=== PATIENT | female | born 1970 | race American Indian/Alaskan Native ===

== ENCOUNTER 2016-11-05 08:03 | Day surgery (SDC) | payer MEDICARE ==
--- NOTE | 2016-11-05 10:26 | Anesthesia Day of Surgery ---
Anesthesia Day of Surgery - Day of Surgery Patient Examined: Yes Patient H&P Reviewed: Yes Patient is NPO: Yes
--- NOTE | 2016-11-05 10:29 | Anesthesia Consultation ---
Anesthesia Consult and Med Hx Date of service: 11/05/16 - Airway Anesthetic Teeth Evaluation: Good ROM Head & Neck: Adequate Mental/Hyoid Distance: Adequate Mallampati Class: Class I Intubation Access Assessment: Probably Good - Pulmonary Exam CTA: Yes - Cardiac Exam Cardiac Exam: RRR - Pre-Operative Health Status ASA Pre-Surgery Classification: ASA3 Proposed Anesthetic Plan: MAC - Pulmonary Hx Smoking: No - Cardiovascular System Hx Hypertension: Yes (HL) - Central Nervous System Hx Psychiatric Problems: Yes (Anxiety d/o) - Endocrine Hx Non-Insulin Dependent Diabetes: Yes - Additional Comments Anesthesia Medical History Comments: Recent weight loss and change in bowel habit.
[2016-11-05] MEDS ORDERED: NACL 0.9% 1000 ML 1,000 ML IV SCH (11:00)
--- NOTE | 2016-11-05 11:44 | Post Anesthesia Evaluation ---
- Post Anesthesia Evaluation Patient Participated: Yes Airway Patent: Yes Stable Respiratory Function: Yes Nausea/Vomiting: No Temp > 96.8F: Yes Pain Manageable: Yes Adequeate Hydration: Yes Anesthesia Complications: No
[2016-11-05] MEDS ORDERED: DIPRIVAN 10 MG/ML IV ONE ×2 (12:11)
[2016-11-05] MEDS ORDERED: WATER FOR IRRIG STERILE IR ONE (12:45)
[2016-11-05 13:09] VITALS: BP 107/65
--- NOTE | 2016-11-10 13:29 | Operative Report ---
Operative Report Operative Report: Date of procedure: 11/05/2016 Procedure: Colonoscopy with submucosal injection and snare polypectomy.. Attending physician: Joe Curry MD Stone Gang Sawyer: Joe Curry MD Indication: Patient is a 45-year-old female who presented with a change in bowel habits. A colonoscopy is done to evaluate patient so that treatment may be directed based on findings. Consent: Informed consent was obtained after advising the patient and family regarding nature of this procedure, its indications, potential benefits as well as possible complications including but not limited to bleeding perforation and adverse reaction to medication, infection as well as other cardiopulmonary complications. An informed written and verbal consent was then obtained after due opportunity was provided for questions and answers. Monitoring: Patient was monitored continuously with pulse oximetry and electrocardiographic recordings as well as blood pressure recordings. Vital signs remained stable throughout this procedure with no untoward events. Preoperative assessment: Patient was assessed immediately prior to this procedure for capacity to tolerate monitored anesthesia care and moderate sedation as well as general anesthesia. Patient's ASA classification is 2, Mallampati class is 2, Hyomental distance is 3. Instrument: TextPowern video colonoscope Medications: Propofol given intravenously in divided doses. For details please refer to anesthesia records. Description of procedure: Patient was placed in the left lateral decubitus position after achieving sedation, a digital rectal examination was performed following which the colonoscope was introduced into the anal verge and advanced to the cecum which was identified by the cecal valve, the appendiceal orifice, as well as by the cecal strap and direct transillumination. The colonoscope was subsequently withdrawn with careful inspection of all mucosal surfaces. Patient tolerated this procedure well and was subsequently taken to the recovery room. The following findings were noted. Findings: Patient had retained stool in sections of the colon. In the descending colon, patient had a broad-based flat polyp which was elevated with submucosal injection of saline. It was then removed by snare electrocautery and retrieved. The rest of the colon was normal. On the retroflex view at the anal verge, patient had internal hemorrhoids. Impression: Descending colon polyp status post submucosal injection and snare polypectomy. Retained stool. Internal hemorrhoids. Plan: Follow pathology report. High-fiber diet. When necessary stool softeners. Consider an earlier colonoscopy in the next 2-3 years given that patient had significant retained stool. Although the examination was considered fair.
== END 2016-11-05 08:04 | disposition home or self-care (01) ==
LOC: GIO 08:03
PROVIDERS: ATTEND Internal Medicine Gastroenterology
DX: D12.4 Benign neoplasm of descending colon (principal); K64.8 Other hemorrhoids; I10 Essential (primary) hypertension; E78.5 Hyperlipidemia, unspecified; F41.9 Anxiety disorder, unspecified; E11.9 Type 2 diabetes mellitus without complications; M19.90 Unspecified osteoarthritis, unspecified site; K21.9 Gastro-esophageal reflux disease without esophagitis; F17.210 Nicotine dependence, cigarettes, uncomplicated; E66.01 Morbid (severe) obesity due to excess calories; Z68.41 Body mass index [BMI] 40.0-44.9, adult; Z88.1 Allergy status to other antibiotic agents; Z88.5 Allergy status to narcotic agent; Z88.2 Allergy status to sulfonamides; Z79.899 Other long term (current) drug therapy; Z79.4 Long term (current) use of insulin; Z90.710 Acquired absence of both cervix and uterus
CPT/HCPCS: 45381; 45385; 82962; 88305; J2704; J7030

== ENCOUNTER 2016-11-09 08:17 | Day surgery (SDC) | payer MEDICARE ==
--- NOTE | 2016-11-09 09:43 | Anesthesia Consultation ---
Anesthesia Consult and Med Hx Date of service: 11/09/16 - Airway Anesthetic Teeth Evaluation: Good ROM Head & Neck: Adequate Mental/Hyoid Distance: Adequate Mallampati Class: Class II Intubation Access Assessment: Probably Good - Pulmonary Exam CTA: Yes - Cardiac Exam Cardiac Exam: RRR - Pre-Operative Health Status ASA Pre-Surgery Classification: ASA3 Proposed Anesthetic Plan: MAC - Pulmonary Hx Smoking: No - Cardiovascular System Hx Hypertension: Yes - Central Nervous System Hx Psychiatric Problems: Yes (Anxiety d/o) - Gastrointestinal Hx Gastroesophageal Reflux Disease: Yes - Endocrine Hx Non-Insulin Dependent Diabetes: Yes - Other Systems Hx Obesity: Yes (morbid obesity)
--- NOTE | 2016-11-09 09:43 | Anesthesia Day of Surgery ---
Anesthesia Day of Surgery - Day of Surgery Patient Examined: Yes Patient H&P Reviewed: Yes Patient is NPO: Yes
[2016-11-09] MEDS ORDERED: NACL 0.9% 1000 ML 1,000 ML IV SCH (10:00)
[2016-11-09] MEDS ORDERED: PEPCID IV NR (10:00)
[2016-11-09] MEDS ORDERED: DIPRIVAN 10 MG/ML IV ONE (10:52)
--- NOTE | 2016-11-09 11:08 | Operative Report ---
Operative Report Operative Report: Date of procedure: 11/09/2016 Procedure: Esophagogastroduodenoscopy with multiple mucosal biopsies. Attending physician: Joe Curry MD Asbestos Shingle Roofer: Joe Curry MD Indication: Patient is a 45-year-old female who presented history of his epigastric pain heartburn and indigestion. She also has episodic dysphagia. An upper endoscopy is done to evaluate patient so that treatment may be directed based on the findings. Consent: Informed consent was obtained after advising the patient and family regarding nature of this procedure, its indications, potential benefits as well as possible complications including but not limited to bleeding perforation and adverse reaction to medication, infection as well as other cardiopulmonary complications. An informed written and verbal consent was then obtained after due opportunity was provided for questions and answers. Monitoring: Patient was monitored continuously with pulse oximetry and electrocardiographic recordings as well as blood pressure recordings. Vital signs remained stable throughout this procedure with no untoward events. Preoperative assessment: Patient was assessed immediately prior to this procedure for capacity to tolerate monitored anesthesia care and moderate sedation as well as general anesthesia. Patient's ASA classification is 2, Mallampati class is 2, Hyomental distance is 3. Instrument: [id number] video Endoscope Medications: Propofol given intravenously in divided doses. For details please refer to anesthesia records. Description of procedure: Patient was placed in the left lateral decubitus position after achieving sedation, the endoscope was introduced into the esophagus under direct vision. It was then advanced beyond the esophagus into the stomach and then beyond the stomach into the duodenum and to the second portion of the duodenum. It was subsequently withdrawn with careful inspection of all mucosal surfaces with the following findings. Findings: Patient had mild erosive esophagitis involving the distal esophagus. Z line was at approximately 30 cm. There was a diminutive sliding hiatal hernia seen on entry into the stomach. There were linear erosions seen in the gastric antrum with surrounding mucosal edema. Biopsies of the antrum were obtained to rule out gastritis. The pyloric channel was patulous. The duodenum was normal to second portion. Impression: Mild erosive esophagitis. Sliding hiatal hernia. Mucosal changes suggestive of erosive gastritis. Plan: Follow pathology report Continue treatment with proton pump inhibitors Maintain antireflux measures Direct additional treatment based on the pathology report.
--- NOTE | 2016-11-09 11:09 | Discharge Summary ---
Short Stay Discharge Plan Activity: advance as tolerated Weight Bearing Status: Weight Bear as Tolerated Diet: regular Additional Instructions: Post Sedation D/C Instructions When you return home you may resume your regular diet unless otherwise directed. -Go directly home from the hospital and rest quietly. You may resume normal activities tomorrow. -Do NOT drive, return to work, operate any machinery or make any important personal or business decisions today. -Do NOT drink any alcohol or take nerve or sleeping drugs. They add to the effects of the medicine still present in your body. Follow up with Dr. Curry to obtain pathology results and treatment plan. Follow up with: MARTIN VALDOVINOS MD [Primary Care Provider] - 7 Days
--- NOTE | 2016-11-09 11:16 | Post Anesthesia Evaluation ---
- Post Anesthesia Evaluation Patient Participated: Yes Airway Patent: Yes Stable Respiratory Function: Yes Temp > 96.8F: Yes Pain Manageable: Yes Adequeate Hydration: Yes Anesthesia Complications: No (8318)
[2016-11-09 11:32] VITALS: BP 110/63
== END 2016-11-09 08:18 | disposition home or self-care (01) ==
LOC: GIO 08:17
PROVIDERS: ATTEND Internal Medicine Gastroenterology
DX: K29.50 Unspecified chronic gastritis without bleeding (principal); K21.0 Gastro-esophageal reflux disease with esophagitis; K44.9 Diaphragmatic hernia without obstruction or gangrene; K31.89 Other diseases of stomach and duodenum; I10 Essential (primary) hypertension; F41.9 Anxiety disorder, unspecified; E11.9 Type 2 diabetes mellitus without complications; M19.90 Unspecified osteoarthritis, unspecified site; E78.5 Hyperlipidemia, unspecified; F17.210 Nicotine dependence, cigarettes, uncomplicated; E66.01 Morbid (severe) obesity due to excess calories; Z68.41 Body mass index [BMI] 40.0-44.9, adult; Z90.710 Acquired absence of both cervix and uterus; Z79.4 Long term (current) use of insulin; Z79.82 Long term (current) use of aspirin; Z79.899 Other long term (current) drug therapy; Z88.6 Allergy status to analgesic agent; Z88.1 Allergy status to other antibiotic agents
CPT/HCPCS: 43239; 88305; 88342; 96374; J2704; J7030

== ENCOUNTER 2017-03-29 10:47 | Day surgery (SDC) | payer MEDICARE ==
--- NOTE | 2017-03-29 13:33 | Anesthesia Day of Surgery ---
Anesthesia Day of Surgery - Day of Surgery Patient Examined: Yes Patient H&P Reviewed: Yes Patient is NPO: Yes
--- NOTE | 2017-03-29 13:33 | Anesthesia Consultation ---
Anesthesia Consult and Med Hx Date of service: 03/29/17 - Airway Anesthetic Teeth Evaluation: Good ROM Head & Neck: Adequate Mental/Hyoid Distance: Inadequate Mallampati Class: Class II Intubation Access Assessment: Probably Good - Pulmonary Exam CTA: Yes - Cardiac Exam Cardiac Exam: RRR - Pre-Operative Health Status ASA Pre-Surgery Classification: ASA3 Proposed Anesthetic Plan: General - Pulmonary Hx Smoking: No - Cardiovascular System Hx Hypertension: Yes - Central Nervous System Hx Psychiatric Problems: Yes (Anxiety d/o) - Gastrointestinal Hx Gastroesophageal Reflux Disease: Yes - Endocrine Hx Non-Insulin Dependent Diabetes: Yes - Other Systems Hx Obesity: Yes (morbid obesity)
[2017-03-29] MEDS ORDERED: NACL 0.9% 1000 ML 1,000 ML IV SCH (14:00)
[2017-03-29] MEDS ORDERED: DIPRIVAN 10 MG/ML IV ONE ×2 (16:05)
--- NOTE | 2017-03-29 16:40 | Operative Report ---
Operative Report Operative Report: Date: 03/29/2017 Operative Report: Date of procedure: 03/29/2017 Procedure: Esophagogastroduodenoscopy with multiple mucosal biopsies Attending physician: Joe Curry MD Stone Setter Apprentice: Joe Curry MD Indication: Patient is a 46-year-old female who presented with a history of severe epigastric pain. An upper endoscopy is done to assess patient so that treatment may be directed based on the findings. Consent: Informed consent was obtained after advising the patient and family regarding nature of this procedure, its indications, potential benefits as well as possible complications including but not limited to bleeding perforation and adverse reaction to medication, infection as well as other cardiopulmonary complications. An informed written and verbal consent was then obtained after due opportunity was provided for questions and answers. Monitoring: Patient was monitored continuously with pulse oximetry and electrocardiographic recordings as well as blood pressure recordings. Vital signs remained stable throughout this procedure with no untoward events. Preoperative assessment: Patient was assessed immediately prior to this procedure for capacity to tolerate monitored anesthesia care and moderate sedation as well as general anesthesia. Patient's ASA classification is 2, Mallampati class is 2, Hyomental distance is 3. Instrument: Queraltn video endoscope Medications: Propofol given intravenously in divided doses. For details please refer to anesthesia records. Description of procedure: Patient was placed in the left lateral decubitus position after achieving sedation, the endoscope was introduced into the esophagus under direct vision. It was then advanced beyond the esophagus into the stomach and then beyond the stomach into the duodenum and to the second portion of the duodenum. It was subsequently withdrawn with careful inspection of all mucosal surfaces with the following findings. Findings: Esophagus was relatively normal however patient had an irregular Z line at 38 cm. There was a diminutive sliding hiatal hernia seen on entry into the stomach. There was erythema and erosions in the gastric antrum. Biopsies of the antrum were obtained for histopathology. The duodenum was normal to second portion. Impression: Irregular Z line. Hiatal hernia. Mucosal changes suggestive of gastritis. Plan: Follow pathology report. Direct additional treatment based on the pathology report.
[2017-03-29] MEDS ORDERED: ZOFRAN ONE (16:41)
[2017-03-29 17:28] VITALS: BP 124/68
== END 2017-03-29 10:48 | disposition home or self-care (01) ==
LOC: GIO 10:47
PROVIDERS: ATTEND Internal Medicine Gastroenterology
DX: K22.8 Other specified diseases of esophagus (principal); K21.9 Gastro-esophageal reflux disease without esophagitis; I10 Essential (primary) hypertension; E11.9 Type 2 diabetes mellitus without complications; E78.5 Hyperlipidemia, unspecified; E66.01 Morbid (severe) obesity due to excess calories; F41.9 Anxiety disorder, unspecified; Z88.8 Allergy status to other drugs, medicaments and biological substances; Z79.82 Long term (current) use of aspirin; Z79.4 Long term (current) use of insulin; Z88.5 Allergy status to narcotic agent; Z68.41 Body mass index [BMI] 40.0-44.9, adult
CPT/HCPCS: 43239; 82962; 88305; 88342; J2405; J2704

== ENCOUNTER 2017-09-30 14:58 | Day surgery (SDC) | payer MEDICARE ==
[2017-09-30] MEDS ORDERED: NACL 0.9% 1000 ML 1,000 ML ONE (15:48)
[2017-09-30] MEDS ORDERED: NACL 0.9% 1000 ML 1,000 ML IV SCH (16:00)
[2017-09-30] MEDS ORDERED: WATER FOR IRRIG STERILE IR ONE (18:14)
[2017-09-30] MEDS ORDERED: XYLOCAINE MPF 2% ONE (18:30)
[2017-09-30] MEDS ORDERED: DIPRIVAN 10 MG/ML IV ONE (18:58)
[2017-09-30] MEDS ORDERED: ZOFRAN ONE (19:25)
--- NOTE | 2017-09-30 19:27 | Operative Report ---
Operative Report Operative Report: Date: 09/30/2017. Date of procedure: 09/30/2017 Operative Report: Esophagogastroduodenoscopy with multiple mucosal biopsies. Attending physician: Joe Curry M.D. Condenser Cleaner: Joe Curry MD Indication: Patient is a 46-year-old female who presented with a history of epigastric pain and melena. An upper endoscopy is done to assess patient so that treatment may be directed based on the findings. Consent: Informed consent was obtained after advising the patient and family regarding nature of this procedure, its indications, potential benefits as well as possible complications including but not limited to bleeding perforation and adverse reaction to medication, infection as well as other cardiopulmonary complications. An informed written and verbal consent was then obtained after due opportunity was provided for questions and answers. Monitoring: Patient was monitored continuously with pulse oximetry and electrocardiographic recordings as well as blood pressure recordings. Vital signs remained stable throughout this procedure with no untoward events. Preoperative assessment: Patient was assessed immediately prior to this procedure for capacity to tolerate monitored anesthesia care and moderate sedation as well as general anesthesia. Patient's ASA classification is 2, Mallampati class is 2, Hyomental distance is 3. Instrument: Qnary video endoscope Medications: Propofol given intravenously in divided doses. For details please refer to anesthesia records. Description of procedure: Patient was placed in the left lateral decubitus position after achieving sedation, the endoscope was introduced into the esophagus under direct vision. It was then advanced beyond the esophagus into the stomach and then beyond the stomach into the duodenum and to the second portion of the duodenum. It was subsequently withdrawn with careful inspection of all mucosal surfaces with the following findings. Findings: Patient has mild erosive esophagitis, involving the distal esophagus, with linear erosions and erythema. There was mild antral erythema in the gastric antrum. Biopsies of the antrum were obtained for histopathology. The duodenum was normal to second portion. Impression: Mild erosive esophagitis. Mild gastric antral erythema, status post biopsies of the gastric antrum. Plan: Follow pathology report, direct additional treatment based on the pathology report. There are no findings to explain patient's melena. Will follow patient clinically and if she continues to have melenic stools, then a colonoscopy may be done to further evaluate patient.
--- NOTE | 2017-09-30 19:28 | Discharge Summary ---
Short Stay Discharge Plan Activity: advance as tolerated Weight Bearing Status: Weight Bear as Tolerated Diet: regular Follow up with: MARTIN VALDOVINOS MD [Primary Care Provider] - 7 Days
[2017-09-30 19:58] VITALS: BP 113/66
== END 2017-09-30 14:59 | disposition home or self-care (01) ==
LOC: GIO 14:58
PROVIDERS: ATTEND Internal Medicine Gastroenterology
DX: K22.10 Ulcer of esophagus without bleeding (principal); K29.50 Unspecified chronic gastritis without bleeding; K44.9 Diaphragmatic hernia without obstruction or gangrene; K92.1 Melena; M19.90 Unspecified osteoarthritis, unspecified site; E11.9 Type 2 diabetes mellitus without complications; I10 Essential (primary) hypertension; E78.5 Hyperlipidemia, unspecified; F41.9 Anxiety disorder, unspecified; Z88.2 Allergy status to sulfonamides; Z79.4 Long term (current) use of insulin; Z88.5 Allergy status to narcotic agent
CPT/HCPCS: 43239; 82962; 88305; 88342; J2405; J2704; J7030